=== PATIENT | female | born 1945 | race Caucasian/White ===

== ENCOUNTER 2018-06-11 14:26 | Inpatient (IN) | payer MEDICARE, OTHER ==
[2018-06-11] MEDS: NITROGLYCERIN (SL) 0.4 MG TAB SL (15:15)
[2018-06-11 15:28] LABS: ADD MAN DIFF? NO
[2018-06-11 15:29] LABS: WHITE BLOOD COUNT 5.9 10^3/ul (4.8-10.8)
[2018-06-11 15:29] LABS: BASOPHILS % 0.3 % (0.0-2.0); EOSINOPHILS # 0.1 10^3/ul (0.0-0.5); HEMATOCRIT 33.3 % (37.0-47.0); HEMOGLOBIN 10.1 g/dl (12.0-16.0); LYMPHOCYTES # 1.2 10^3/ul (0.8-2.9); LYMPHOCYTES % 20.5 % (15.0-51.0); MEAN CORPUSCULAR HEMOGLOBIN 26.6 pg (29.0-33.0); MEAN CORPUSCULAR HGB CONC 30.3 g/dl (32.0-37.0); MEAN CORPUSCULAR VOLUME 87.6 fl (82.0-101.0); MEAN PLATELET VOLUME 10.5 fl (7.4-10.4); MONOCYTE # 0.3 10^3/ul (0.3-0.9); MONOCYTES % 5.8 % (0.0-11.0); NEUTROPHIL # 4.2 10^3/ul (1.6-7.5); NEUTROPHILS % 71.1 % (39.0-77.0); PLATELET COUNT 153 10^3/UL (140-415); RED CELL DISTRIBUTION WIDTH 15.4 % (11.5-14.5)
[2018-06-11 15:50] LABS: ANION GAP 3 (5-13); BLOOD UREA NITROGEN 28 mg/dl (7-20); CALCIUM 9.3 mg/dl (8.4-10.2); CARBON DIOXIDE 29 mmol/L (21-31); CHLORIDE 109 mmol/L (97-110); CREATININE 1.33 mg/dl (0.44-1.00); GLUCOSE 103 mg/dl (70-220); SODIUM 141 mmol/L (135-144)
[2018-06-11 16:02] LABS: B-TYPE NATRIURETIC PEPTIDE 2250 PG/ML (0-125); TROPONIN-I < 0.012 ng/ml (0.000-0.120)
[2018-06-11] MEDS: FUROSEMIDE 40 MG INJ IV (16:16)
[2018-06-11] MEDS ORDERED: ZOLPIDEM 5 MG TAB PO (18:30)
[2018-06-11] MEDS ORDERED: DOCUSATE SODIUM 100 MG CAP PO (18:30)
[2018-06-11] MEDS: CLONIDINE 0.3 MG/24 HR PATCH TRANSDERM (18:30)
[2018-06-11] MEDS ORDERED: ONDANSETRON 4 MG INJ IV ×2 (18:30→19:00)
[2018-06-11] MEDS: NON-FORMULARY/PATIENT OWN MED (Ergocalciferol (Vitamin D2) (Vitamin D2) 50,000 UNIT) XX (18:30)
[2018-06-11] MEDS ORDERED: clonAZEPAM 0.5 MG TAB PO (18:30)
[2018-06-11] MEDS ORDERED: NACL 0.9% 3 ML SYG IV (18:30)
[2018-06-11] MEDS ORDERED: ACETAMINOPHEN 325 MG TAB PO ×2 (18:30→19:00)
[2018-06-11] MEDS ORDERED: GLUCAGON 1 MG INJ IM (20:00)
[2018-06-11] MEDS: INSULIN GLARGINE [LANTus] (100 UNITS/ML) SYG SC (20:00)
[2018-06-11] MEDS ORDERED: GLUCOSE GEL 15 GRAM TUBE BUCCAL (20:00)
[2018-06-11] MEDS ORDERED: DEXTROSE 50% 50 ML SYRINGE IV ×2 (20:00)
[2018-06-11] MEDS ORDERED: GLUCOSE GEL 15 GRAM TUBE PO ×2 (20:00)
[2018-06-11] MEDS ORDERED: NON-FORMULARY/PATIENT OWN MED (Rosuvastatin Calcium* (Crestor*) 10 MG) PO (21:00)
[2018-06-11] MEDS: INSULIN ASPART [NOVOLOG] 3 ML PEN SC (21:00)
[2018-06-11] MEDS ORDERED: HEPARIN 5,000 UNIT/0.5 ML VIAL (21:34)
[2018-06-11] MEDS: CYCLOBENZAPRINE 10 MG TAB PO (21:43)
[2018-06-11] MEDS: CEPHALEXIN 500 MG CAP PO (21:50)
[2018-06-11] MEDS: DOXAZOSIN 4 MG TAB PO (21:51)
[2018-06-11] MEDS: MONTELUKAST 10 MG TAB PO (21:52)
[2018-06-11] MEDS: ATORVASTATIN 40 MG TAB PO (21:52)
[2018-06-11] MEDS: MIRTAZAPINE 15 MG TAB PO (21:52)
[2018-06-11] MEDS: clonAZEPAM 0.5 MG TAB PO (21:53)
[2018-06-11] MEDS: BETAMETHASONE/CLOTRIMAZOLE 15 GM CR TOP (21:55)
[2018-06-11] MEDS: HEPARIN SODIUM 5,000 UNIT/ML VIAL SC (21:59)
[2018-06-11] MEDS ORDERED: NON-FORMULARY/PATIENT OWN MED (Hydralazine Hcl* 50 MG) PO (22:00)
[2018-06-11] MEDS: ZOLPIDEM 5 MG TAB PO (22:20)
[2018-06-11] MEDS: traMADol 50 MG TAB PO (22:22)
[2018-06-12] MEDS: ACCU-CHEK XX (02:00)
[2018-06-12] MEDS ORDERED: HEPARIN 5,000 UNIT/0.5 ML VIAL ×3 (05:17→22:01)
[2018-06-12 05:55] LABS: ADD MAN DIFF? NO
[2018-06-12 05:58] LABS: WHITE BLOOD COUNT 5.5 10^3/ul (4.8-10.8)
[2018-06-12 05:58] LABS: BASOPHILS % 0.7 % (0.0-2.0); EOSINOPHILS # 0.2 10^3/ul (0.0-0.5); EOSINOPHILS % 2.7 % (0.0-7.0); HEMATOCRIT 30.2 % (37.0-47.0); HEMOGLOBIN 9.2 g/dl (12.0-16.0); LYMPHOCYTES # 1.2 10^3/ul (0.8-2.9); LYMPHOCYTES % 21.2 % (15.0-51.0); MEAN CORPUSCULAR HEMOGLOBIN 26.6 pg (29.0-33.0); MEAN CORPUSCULAR HGB CONC 30.5 g/dl (32.0-37.0); MEAN CORPUSCULAR VOLUME 87.3 fl (82.0-101.0); MEAN PLATELET VOLUME 10.2 fl (7.4-10.4); MONOCYTE # 0.4 10^3/ul (0.3-0.9); MONOCYTES % 7.9 % (0.0-11.0); NEUTROPHIL # 3.7 10^3/ul (1.6-7.5); NEUTROPHILS % 67.1 % (39.0-77.0); PLATELET COUNT 134 10^3/UL (140-415); RED BLOOD COUNT 3.46 10^6/ul (4.20-5.40); RED CELL DISTRIBUTION WIDTH 15.6 % (11.5-14.5)
[2018-06-12] MEDS: FUROSEMIDE 40 MG INJ IV ×2 (06:16→17:06)
[2018-06-12] MEDS: HEPARIN SODIUM 5,000 UNIT/ML VIAL SC ×3 (06:22→22:09)
[2018-06-12 06:57] LABS: ANION GAP 5 (5-13); BLOOD UREA NITROGEN 29 mg/dl (7-20); CARBON DIOXIDE 27 mmol/L (21-31); CHLORIDE 109 mmol/L (97-110); CREATININE 1.29 mg/dl (0.44-1.00); GLUCOSE 162 mg/dl (70-220); POTASSIUM 4.4 mmol/L (3.5-5.1); SODIUM 141 mmol/L (135-144)
[2018-06-12] MEDS: ARIPIPRAZOLE 5 MG TAB PO (08:07)
[2018-06-12] MEDS: FERROUS SULFATE (EC) 325 MG TAB PO (08:08)
[2018-06-12] MEDS: METOPROLOL (XL) 100 MG TAB PO (08:11)
[2018-06-12] MEDS: AMLODIPINE 10 MG TAB PO (08:12)
[2018-06-12] MEDS: ALLOPURINOL 300 MG TAB PO (08:12)
[2018-06-12] MEDS: BETAMETHASONE/CLOTRIMAZOLE 15 GM CR TOP ×2 (08:12→22:06)
[2018-06-12] MEDS ORDERED: ASPIRIN 81 MG TAB PO (09:00)
[2018-06-12] MEDS ORDERED: METOPROLOL SUCCINATE 100 MG PO (09:00)
[2018-06-12] MEDS: INSULIN ASPART [NOVOLOG] 3 ML PEN SC ×4 (09:07→21:00)
[2018-06-12] MEDS: FLUTICASONE/VILANTEROL 200-25 INH DEVICE INH (13:07)
[2018-06-12] MEDS: GUAIFENESIN/DM 5ML CUP PO (16:32)
[2018-06-12] MEDS: ATORVASTATIN 40 MG TAB PO (21:07)
[2018-06-12] MEDS: DOXAZOSIN 4 MG TAB PO (21:07)
[2018-06-12] MEDS: CYCLOBENZAPRINE 10 MG TAB PO (21:08)
[2018-06-12] MEDS: MIRTAZAPINE 15 MG TAB PO (21:08)
[2018-06-12] MEDS: MONTELUKAST 10 MG TAB PO (21:08)
[2018-06-12] MEDS: ZOLPIDEM 5 MG TAB PO (21:14)
[2018-06-12] MEDS: clonAZEPAM 0.5 MG TAB PO (21:14)
[2018-06-12] MEDS: INSULIN GLARGINE [LANTus] (100 UNITS/ML) SYG SC (21:28)
[2018-06-13] MEDS: ACCU-CHEK XX (02:00)
[2018-06-13] MEDS ORDERED: HEPARIN 5,000 UNIT/0.5 ML VIAL ×3 (05:47→21:05)
[2018-06-13 05:49] LABS: ADD MAN DIFF? NO
[2018-06-13 05:56] LABS: WHITE BLOOD COUNT 5.4 10^3/ul (4.8-10.8)
[2018-06-13 05:56] LABS: BASOPHILS % 0.7 % (0.0-2.0); EOSINOPHILS # 0.2 10^3/ul (0.0-0.5); EOSINOPHILS % 2.8 % (0.0-7.0); HEMATOCRIT 29.3 % (37.0-47.0); HEMOGLOBIN 9.1 g/dl (12.0-16.0); LYMPHOCYTES # 1.3 10^3/ul (0.8-2.9); LYMPHOCYTES % 24.7 % (15.0-51.0); MEAN CORPUSCULAR HEMOGLOBIN 26.6 pg (29.0-33.0); MEAN CORPUSCULAR HGB CONC 31.1 g/dl (32.0-37.0); MEAN CORPUSCULAR VOLUME 85.7 fl (82.0-101.0); MEAN PLATELET VOLUME 10.5 fl (7.4-10.4); MONOCYTE # 0.4 10^3/ul (0.3-0.9); MONOCYTES % 7.6 % (0.0-11.0); NEUTROPHIL # 3.5 10^3/ul (1.6-7.5); PLATELET COUNT 131 10^3/UL (140-415); RED BLOOD COUNT 3.42 10^6/ul (4.20-5.40); RED CELL DISTRIBUTION WIDTH 15.4 % (11.5-14.5)
[2018-06-13] MEDS: FUROSEMIDE 40 MG INJ IV ×2 (06:11→17:39)
[2018-06-13 06:14] LABS: ANION GAP 9 (5-13)
[2018-06-13 06:15] LABS: BLOOD UREA NITROGEN 37 mg/dl (7-20); CALCIUM 8.8 mg/dl (8.4-10.2); CARBON DIOXIDE 24 mmol/L (21-31); CHLORIDE 107 mmol/L (97-110); CREATININE 1.38 mg/dl (0.44-1.00); GLUCOSE 138 mg/dl (70-220); POTASSIUM 4.4 mmol/L (3.5-5.1); SODIUM 140 mmol/L (135-144)
[2018-06-13] MEDS: HEPARIN SODIUM 5,000 UNIT/ML VIAL SC ×3 (06:17→21:29)
[2018-06-13] MEDS: INSULIN ASPART [NOVOLOG] 3 ML PEN SC ×4 (07:54→21:00)
[2018-06-13] MEDS: ARIPIPRAZOLE 5 MG TAB PO (08:25)
[2018-06-13] MEDS: AMLODIPINE 10 MG TAB PO (08:25)
[2018-06-13] MEDS: ALLOPURINOL 300 MG TAB PO (08:25)
[2018-06-13] MEDS: FERROUS SULFATE (EC) 325 MG TAB PO (08:25)
[2018-06-13] MEDS: BETAMETHASONE/CLOTRIMAZOLE 15 GM CR TOP ×2 (08:26→21:22)
[2018-06-13] MEDS: METOPROLOL (XL) 100 MG TAB PO (08:26)
[2018-06-13] MEDS: FLUTICASONE/VILANTEROL 200-25 INH DEVICE INH (08:26)
[2018-06-13] MEDS ORDERED: LEVOFLOXACIN 750MG/D5W (PMX) 150 ML IVPB (12:30)
[2018-06-13] MEDS ORDERED: VANCOMYCIN IV PER PHARMACY XX (12:30)
[2018-06-13] MEDS: CLONIDINE 0.3 MG/24 HR PATCH TRANSDERM (12:36)
[2018-06-13] MEDS: LEVOFLOXACIN 750MG/D5W (PMX) 150 ML IVPB (13:34)
[2018-06-13] MEDS: VANCOMYCIN 1.75 GM in SOD CHLORIDE 0.9% 500 ML IVPB (15:40)
[2018-06-13] MEDS ORDERED: FAMOTIDINE 20 MG TAB PO (21:00)
[2018-06-13] MEDS: MIRTAZAPINE 15 MG TAB PO (21:19)
[2018-06-13] MEDS: ATORVASTATIN 40 MG TAB PO (21:19)
[2018-06-13] MEDS: DOXAZOSIN 4 MG TAB PO (21:20)
[2018-06-13] MEDS: CYCLOBENZAPRINE 10 MG TAB PO (21:20)
[2018-06-13] MEDS: MONTELUKAST 10 MG TAB PO (21:21)
[2018-06-13] MEDS: FAMOTIDINE 20 MG TAB PO (21:21)
[2018-06-13] MEDS: ZOLPIDEM 5 MG TAB PO (21:25)
[2018-06-13] MEDS: clonAZEPAM 0.5 MG TAB PO (21:25)
[2018-06-13] MEDS: INSULIN GLARGINE [LANTus] (100 UNITS/ML) SYG SC (21:29)
[2018-06-14] MEDS: ACCU-CHEK XX (02:00)
[2018-06-14] MEDS ORDERED: HEPARIN 5,000 UNIT/0.5 ML VIAL ×3 (05:39→21:09)
[2018-06-14] MEDS: FUROSEMIDE 40 MG INJ IV ×2 (05:41→17:26)
[2018-06-14] MEDS: HEPARIN SODIUM 5,000 UNIT/ML VIAL SC ×3 (06:21→21:21)
[2018-06-14] MEDS: CEPASTAT LOZENGE MT (06:35)
[2018-06-14 06:41] LABS: ADD MAN DIFF? NO
[2018-06-14 06:48] LABS: BASOPHILS % 0.4 % (0.0-2.0); EOSINOPHILS # 0.1 10^3/ul (0.0-0.5); EOSINOPHILS % 2.1 % (0.0-7.0); HEMATOCRIT 30.9 % (37.0-47.0); HEMOGLOBIN 9.6 g/dl (12.0-16.0); LYMPHOCYTES % 18.8 % (15.0-51.0); MEAN CORPUSCULAR HEMOGLOBIN 26.8 pg (29.0-33.0); MEAN CORPUSCULAR HGB CONC 31.1 g/dl (32.0-37.0); MEAN CORPUSCULAR VOLUME 86.3 fl (82.0-101.0); MEAN PLATELET VOLUME 10.6 fl (7.4-10.4); MONOCYTE # 0.4 10^3/ul (0.3-0.9); MONOCYTES % 8.5 % (0.0-11.0); NEUTROPHIL # 3.6 10^3/ul (1.6-7.5); NEUTROPHILS % 69.6 % (39.0-77.0); PLATELET COUNT 129 10^3/UL (140-415); RED BLOOD COUNT 3.58 10^6/ul (4.20-5.40); RED CELL DISTRIBUTION WIDTH 15.2 % (11.5-14.5)
[2018-06-14 06:48] LABS: WHITE BLOOD COUNT 5.2 10^3/ul (4.8-10.8)
[2018-06-14 07:18] LABS: ANION GAP 10 (5-13); BLOOD UREA NITROGEN 42 mg/dl (7-20); CALCIUM 8.9 mg/dl (8.4-10.2); CARBON DIOXIDE 24 mmol/L (21-31); CHLORIDE 107 mmol/L (97-110); CREATININE 1.32 mg/dl (0.44-1.00); GLUCOSE 136 mg/dl (70-220); POTASSIUM 4.7 mmol/L (3.5-5.1); SODIUM 141 mmol/L (135-144)
[2018-06-14 07:24] LABS: PHOSPHORUS 3.9 mg/dl (2.5-4.9)
[2018-06-14 07:24] LABS: MAGNESIUM 1.8 mg/dl (1.7-2.5)
[2018-06-14] MEDS: METOPROLOL (XL) 100 MG TAB PO (08:05)
[2018-06-14] MEDS: AMLODIPINE 10 MG TAB PO (08:06)
[2018-06-14] MEDS: FERROUS SULFATE (EC) 325 MG TAB PO (08:06)
[2018-06-14] MEDS: ALLOPURINOL 300 MG TAB PO (08:06)
[2018-06-14] MEDS: FAMOTIDINE 20 MG TAB PO ×2 (08:06→21:03)
[2018-06-14] MEDS: FLUTICASONE/VILANTEROL 200-25 INH DEVICE INH (08:07)
[2018-06-14] MEDS: INSULIN ASPART [NOVOLOG] 3 ML PEN SC ×4 (08:41→21:00)
[2018-06-14] MEDS: BETAMETHASONE/CLOTRIMAZOLE 15 GM CR TOP ×2 (11:00→21:09)
[2018-06-14] MEDS: MAGNESIUM SULFATE 2 GM/50 ML 50 ML IVPB (11:00)
[2018-06-14] MEDS: GUAIFENESIN/DM 5ML CUP PO (12:28)
[2018-06-14] MEDS: ARIPIPRAZOLE 5 MG TAB PO (12:28)
[2018-06-14] MEDS: VANCOMYCIN 750 MG in SOD CHLORIDE 0.9% 150 ML IVPB (15:56)
[2018-06-14] MEDS: ATORVASTATIN 40 MG TAB PO (21:02)
[2018-06-14] MEDS: ZOLPIDEM 5 MG TAB PO (21:02)
[2018-06-14] MEDS: clonAZEPAM 0.5 MG TAB PO (21:02)
[2018-06-14] MEDS: CYCLOBENZAPRINE 10 MG TAB PO (21:02)
[2018-06-14] MEDS: MIRTAZAPINE 15 MG TAB PO (21:02)
[2018-06-14] MEDS: MONTELUKAST 10 MG TAB PO (21:02)
[2018-06-14] MEDS: DOXAZOSIN 4 MG TAB PO (21:03)
[2018-06-14] MEDS: INSULIN GLARGINE [LANTus] (100 UNITS/ML) SYG SC (21:17)
[2018-06-14] MEDS: traMADol 50 MG TAB PO (22:07)
[2018-06-15] MEDS: ACCU-CHEK XX (02:00)
[2018-06-15] MEDS ORDERED: HEPARIN 5,000 UNIT/0.5 ML VIAL ×2 (06:11→14:18)
[2018-06-15 06:31] LABS: ADD MAN DIFF? NO
[2018-06-15] MEDS: FUROSEMIDE 40 MG INJ IV (06:34)
[2018-06-15] MEDS: HEPARIN SODIUM 5,000 UNIT/ML VIAL SC ×2 (06:38→14:28)
[2018-06-15 06:40] LABS: BASOPHILS % 0.4 % (0.0-2.0); EOSINOPHILS # 0.1 10^3/ul (0.0-0.5); EOSINOPHILS % 1.8 % (0.0-7.0); HEMATOCRIT 29.7 % (37.0-47.0); HEMOGLOBIN 9.1 g/dl (12.0-16.0); LYMPHOCYTES # 0.9 10^3/ul (0.8-2.9); LYMPHOCYTES % 18.5 % (15.0-51.0); MEAN CORPUSCULAR HEMOGLOBIN 26.5 pg (29.0-33.0); MEAN CORPUSCULAR HGB CONC 30.6 g/dl (32.0-37.0); MEAN CORPUSCULAR VOLUME 86.3 fl (82.0-101.0); MEAN PLATELET VOLUME 10.6 fl (7.4-10.4); MONOCYTE # 0.5 10^3/ul (0.3-0.9); MONOCYTES % 9.2 % (0.0-11.0); NEUTROPHIL # 3.4 10^3/ul (1.6-7.5); NEUTROPHILS % 69.5 % (39.0-77.0); PLATELET COUNT 127 10^3/UL (140-415); RED BLOOD COUNT 3.44 10^6/ul (4.20-5.40); RED CELL DISTRIBUTION WIDTH 15.5 % (11.5-14.5)
[2018-06-15 06:40] LABS: WHITE BLOOD COUNT 4.9 10^3/ul (4.8-10.8)
[2018-06-15 07:09] LABS: ANION GAP 9 (5-13); BLOOD UREA NITROGEN 39 mg/dl (7-20); CALCIUM 8.9 mg/dl (8.4-10.2); CARBON DIOXIDE 24 mmol/L (21-31); CHLORIDE 106 mmol/L (97-110); CREATININE 1.54 mg/dl (0.44-1.00); GLUCOSE 136 mg/dl (70-220); POTASSIUM 4.1 mmol/L (3.5-5.1); SODIUM 139 mmol/L (135-144)
[2018-06-15] MEDS: ALLOPURINOL 300 MG TAB PO (08:01)
[2018-06-15] MEDS: FLUTICASONE/VILANTEROL 200-25 INH DEVICE INH (08:01)
[2018-06-15] MEDS: METOPROLOL (XL) 100 MG TAB PO (08:01)
[2018-06-15] MEDS: FERROUS SULFATE (EC) 325 MG TAB PO (08:02)
[2018-06-15] MEDS: AMLODIPINE 10 MG TAB PO (08:02)
[2018-06-15] MEDS: BETAMETHASONE/CLOTRIMAZOLE 15 GM CR TOP (08:02)
[2018-06-15] MEDS: FAMOTIDINE 20 MG TAB PO (08:02)
[2018-06-15] MEDS: INSULIN ASPART [NOVOLOG] 3 ML PEN SC ×3 (08:12→16:59)
[2018-06-15 08:26] LABS: MAGNESIUM 2.3 mg/dl (1.7-2.5)
[2018-06-15 08:26] LABS: PHOSPHORUS 3.8 mg/dl (2.5-4.9)
[2018-06-15] MEDS: ARIPIPRAZOLE 10 MG TAB PO (11:56)
[2018-06-15] MEDS: LEVOFLOXACIN 750MG/D5W (PMX) 150 ML IVPB (14:20)
[2018-06-15] MEDS: VANCOMYCIN 750 MG in SOD CHLORIDE 0.9% 150 ML IVPB (15:31)
[2018-06-15] MEDS: FUROSEMIDE 20 MG TAB PO (16:40)
[2018-06-15] MEDS: DOXAZOSIN 4 MG TAB PO (20:14)
[2018-06-18] MEDS ORDERED: ERGOCALCIFEROL 50,000 UNIT CAP PO (09:00)
== END 2018-06-15 20:55 | disposition home health service (06) | DRG 291 ==
LOC: E/R 14:26 → TEL 18:35
DX: I13.0 Hypertensive heart and chronic kidney disease with heart failure and stage 1 through stage 4 chronic kidney disease, or unspecified chronic kidney disease (principal); I50.33 Acute on chronic diastolic (congestive) heart failure; L03.119 Cellulitis of unspecified part of limb; N18.9 Chronic kidney disease, unspecified; E11.22 Type 2 diabetes mellitus with diabetic chronic kidney disease; E78.5 Hyperlipidemia, unspecified; J45.909 Unspecified asthma, uncomplicated; Z79.4 Long term (current) use of insulin; Z79.84 Long term (current) use of oral hypoglycemic drugs; Z95.0 Presence of cardiac pacemaker
CPT/HCPCS: 36415; 70450; 71045; 73560; 80048; 82962; 83735; 83880; 84100; 84484; 85025; 87081; 93005; 96374; 99285-25; G0378

== ENCOUNTER 2018-06-21 20:01 | Inpatient (IN) | payer MEDICARE, OTHER ==
[2018-06-21 20:44] LABS: ADD MAN DIFF? NO
[2018-06-21 20:46] LABS: WHITE BLOOD COUNT 7.9 10^3/ul (4.8-10.8)
[2018-06-21 20:46] LABS: BASOPHILS % 0.3 % (0.0-2.0); EOSINOPHILS # 0.1 10^3/ul (0.0-0.5); EOSINOPHILS % 0.9 % (0.0-7.0); HEMATOCRIT 33.6 % (37.0-47.0); HEMOGLOBIN 10.3 g/dl (12.0-16.0); LYMPHOCYTES # 1.3 10^3/ul (0.8-2.9); LYMPHOCYTES % 15.9 % (15.0-51.0); MEAN CORPUSCULAR HEMOGLOBIN 26.5 pg (29.0-33.0); MEAN CORPUSCULAR HGB CONC 30.7 g/dl (32.0-37.0); MEAN CORPUSCULAR VOLUME 86.4 fl (82.0-101.0); MEAN PLATELET VOLUME 10.8 fl (7.4-10.4); MONOCYTE # 0.4 10^3/ul (0.3-0.9); MONOCYTES % 5.3 % (0.0-11.0); NEUTROPHIL # 6.1 10^3/ul (1.6-7.5); PLATELET COUNT 157 10^3/UL (140-415); RED BLOOD COUNT 3.89 10^6/ul (4.20-5.40); RED CELL DISTRIBUTION WIDTH 15.8 % (11.5-14.5)
[2018-06-21 21:05] LABS: ANION GAP 8 (5-13); BLOOD UREA NITROGEN 27 mg/dl (7-20); CARBON DIOXIDE 22 mmol/L (21-31); CHLORIDE 108 mmol/L (97-110); CREATININE 0.96 mg/dl (0.44-1.00); GLUCOSE 143 mg/dl (70-220); POTASSIUM 5.5 mmol/L (3.5-5.1); SODIUM 138 mmol/L (135-144)
[2018-06-21 21:17] LABS: TROPONIN-I < 0.012 ng/ml (0.000-0.120)
[2018-06-22] MEDS: ZOLPIDEM 5 MG TAB PO (00:30)
[2018-06-22] MEDS ORDERED: NITROGLYCERIN (SL) 0.4 MG TAB SL (03:00)
[2018-06-22] MEDS ORDERED: ALENDRONATE 70 MG TAB PO (03:00)
[2018-06-22] MEDS ORDERED: DICLOFENAC SODIUM 1% GEL 100 GM TUBE TP (03:00)
[2018-06-22] MEDS ORDERED: clonAZEPAM 0.5 MG TAB PO (03:00)
[2018-06-22] MEDS ORDERED: LEVOFLOXACIN 750 MG TABLET PO (03:00)
[2018-06-22] MEDS ORDERED: traMADol 50 MG TAB PO (03:00)
[2018-06-22] MEDS ORDERED: ACETAMINOPHEN 500 MG TAB PO (03:00)
[2018-06-22 03:19] LABS: CREATINE KINASE < 20 IU/L (23-200)
[2018-06-22 03:21] LABS: CK-MB 0.65 ng/ml (0.0-2.4); TROPONIN-I < 0.012 ng/ml (0.000-0.120)
[2018-06-22] MEDS ORDERED: GLUCAGON 1 MG INJ IM (03:30)
[2018-06-22] MEDS ORDERED: GLUCOSE GEL 15 GRAM TUBE PO ×2 (03:30)
[2018-06-22] MEDS ORDERED: DEXTROSE 50% 50 ML SYRINGE IV ×2 (03:30)
[2018-06-22] MEDS ORDERED: GLUCOSE GEL 15 GRAM TUBE BUCCAL (03:30)
[2018-06-22] MEDS: FUROSEMIDE 40 MG INJ IV ×2 (05:09→17:23)
[2018-06-22 07:12] LABS: ADD MAN DIFF? NO
[2018-06-22 07:15] LABS: WHITE BLOOD COUNT 7.1 10^3/ul (4.8-10.8)
[2018-06-22 07:15] LABS: BASOPHILS % 0.4 % (0.0-2.0); EOSINOPHILS # 0.1 10^3/ul (0.0-0.5); EOSINOPHILS % 1.4 % (0.0-7.0); HEMOGLOBIN 9.4 g/dl (12.0-16.0); LYMPHOCYTES # 1.7 10^3/ul (0.8-2.9); LYMPHOCYTES % 24.4 % (15.0-51.0); MEAN CORPUSCULAR HEMOGLOBIN 26.3 pg (29.0-33.0); MEAN CORPUSCULAR HGB CONC 30.3 g/dl (32.0-37.0); MEAN CORPUSCULAR VOLUME 86.6 fl (82.0-101.0); MEAN PLATELET VOLUME 10.5 fl (7.4-10.4); MONOCYTE # 0.5 10^3/ul (0.3-0.9); MONOCYTES % 7.2 % (0.0-11.0); NEUTROPHIL # 4.7 10^3/ul (1.6-7.5); PLATELET COUNT 159 10^3/UL (140-415); RED BLOOD COUNT 3.58 10^6/ul (4.20-5.40); RED CELL DISTRIBUTION WIDTH 15.7 % (11.5-14.5)
[2018-06-22 07:37] LABS: ANION GAP 9 (5-13); BLOOD UREA NITROGEN 25 mg/dl (7-20); CALCIUM 9.2 mg/dl (8.4-10.2); CARBON DIOXIDE 25 mmol/L (21-31); CHLORIDE 108 mmol/L (97-110); CREATININE 1.14 mg/dl (0.44-1.00); GLUCOSE 54 mg/dl (70-220); POTASSIUM 4.1 mmol/L (3.5-5.1); SODIUM 142 mmol/L (135-144)
[2018-06-22 07:45] LABS: B-TYPE NATRIURETIC PEPTIDE 3700 PG/ML (0-125)
[2018-06-22] MEDS: GLIMEPIRIDE 4 MG TAB PO (08:52)
[2018-06-22] MEDS: ARIPIPRAZOLE 5 MG TAB PO (08:52)
[2018-06-22] MEDS: ALLOPURINOL 300 MG TAB PO (08:52)
[2018-06-22] MEDS: METOPROLOL (XL) 100 MG TAB PO (08:52)
[2018-06-22] MEDS: CITALOPRAM 20 MG TAB PO (08:52)
[2018-06-22] MEDS: FERROUS SULFATE (EC) 325 MG TAB PO (08:52)
[2018-06-22] MEDS: AMLODIPINE 10 MG TAB PO (08:52)
[2018-06-22] MEDS: BETAMETHASONE/CLOTRIMAZOLE 15 GM CR TOP ×2 (08:53→21:07)
[2018-06-22] MEDS: ASPIRIN 81 MG TAB PO (09:00)
[2018-06-22 09:31] LABS: CREATINE KINASE < 20 IU/L (23-200)
[2018-06-22 09:43] LABS: CK-MB 0.49 ng/ml (0.0-2.4); TROPONIN-I < 0.012 ng/ml (0.000-0.120)
[2018-06-22] MEDS: INSULIN ASPART [NOVOLOG] 3 ML PEN SC ×3 (11:50→21:00)
[2018-06-22] MEDS: PANTOPRAZOLE (EC) 40 MG TAB PO (12:26)
[2018-06-22] MEDS: GUAIFENESIN LA 600 MG TABSR PO ×2 (12:26→21:06)
[2018-06-22] MEDS: FLUTICASONE/VILANTEROL 200-25 INH DEVICE INH (14:07)
[2018-06-22] MEDS: CLONIDINE 0.3 MG/24 HR PATCH TRANSDERM (14:09)
[2018-06-22] MEDS: SPIRONOLACTONE 25 MG TAB PO (17:23)
[2018-06-22] MEDS ORDERED: NON-FORMULARY/PATIENT OWN MED (Rosuvastatin Calcium* (Crestor*) 10 MG) PO (21:00)
[2018-06-22] MEDS: CYCLOBENZAPRINE 10 MG TAB PO (21:05)
[2018-06-22] MEDS: MONTELUKAST 10 MG TAB PO (21:05)
[2018-06-22] MEDS: MIRTAZAPINE 15 MG TAB PO (21:05)
[2018-06-22] MEDS: ATORVASTATIN 10 MG TAB PO (21:05)
[2018-06-22] MEDS: DOXAZOSIN 4 MG TAB PO (21:06)
[2018-06-22] MEDS: INSULIN DETEMIR [LEVEMIR] (100 UNITS/ML) SYG SC (21:14)
[2018-06-22] MEDS: FUROSEMIDE 250 MG in DEXTROSE 5% 225 ML IV (23:40)
[2018-06-23] MEDS: ACCU-CHEK XX ×2 (02:00→23:39)
[2018-06-23] MEDS ORDERED: ACCU-CHEK XX (02:00)
[2018-06-23] MEDS ORDERED: FUROSEMIDE 40 MG INJ IV (06:00)
[2018-06-23 06:13] LABS: ADD MAN DIFF? NO
[2018-06-23] MEDS: SPIRONOLACTONE 25 MG TAB PO ×2 (06:15→17:41)
[2018-06-23] MEDS: PANTOPRAZOLE (EC) 40 MG TAB PO (06:15)
[2018-06-23 06:21] LABS: BASOPHILS % 0.5 % (0.0-2.0); EOSINOPHILS # 0.1 10^3/ul (0.0-0.5); EOSINOPHILS % 1.7 % (0.0-7.0); HEMATOCRIT 30.7 % (37.0-47.0); HEMOGLOBIN 9.6 g/dl (12.0-16.0); LYMPHOCYTES # 1.8 10^3/ul (0.8-2.9); LYMPHOCYTES % 24.1 % (15.0-51.0); MEAN CORPUSCULAR HGB CONC 31.3 g/dl (32.0-37.0); MEAN CORPUSCULAR VOLUME 86.5 fl (82.0-101.0); MONOCYTE # 0.6 10^3/ul (0.3-0.9); MONOCYTES % 7.4 % (0.0-11.0); NEUTROPHIL # 4.9 10^3/ul (1.6-7.5); NEUTROPHILS % 65.9 % (39.0-77.0); PLATELET COUNT 149 10^3/UL (140-415); RED BLOOD COUNT 3.55 10^6/ul (4.20-5.40); RED CELL DISTRIBUTION WIDTH 15.7 % (11.5-14.5)
[2018-06-23 06:21] LABS: WHITE BLOOD COUNT 7.5 10^3/ul (4.8-10.8)
[2018-06-23 06:39] LABS: ANION GAP 8 (5-13); BLOOD UREA NITROGEN 38 mg/dl (7-20); CARBON DIOXIDE 27 mmol/L (21-31); CHLORIDE 107 mmol/L (97-110); CREATININE 1.38 mg/dl (0.44-1.00); GLUCOSE 72 mg/dl (70-220); POTASSIUM 4.5 mmol/L (3.5-5.1); SODIUM 142 mmol/L (135-144)
[2018-06-23] MEDS: INSULIN ASPART [NOVOLOG] 3 ML PEN SC ×4 (07:55→21:00)
[2018-06-23] MEDS: LEVOFLOXACIN 500 MG TAB PO (08:20)
[2018-06-23] MEDS: ALLOPURINOL 300 MG TAB PO (08:20)
[2018-06-23] MEDS: METOLAZONE 5 MG TAB PO (08:20)
[2018-06-23] MEDS: CITALOPRAM 20 MG TAB PO (08:20)
[2018-06-23] MEDS: AMLODIPINE 10 MG TAB PO (08:20)
[2018-06-23] MEDS: FERROUS SULFATE (EC) 325 MG TAB PO (08:20)
[2018-06-23] MEDS: ASPIRIN 81 MG TAB PO ×2 (08:20→09:00)
[2018-06-23] MEDS: ARIPIPRAZOLE 5 MG TAB PO (08:20)
[2018-06-23] MEDS: METOPROLOL (XL) 100 MG TAB PO (08:21)
[2018-06-23] MEDS: FLUTICASONE/VILANTEROL 200-25 INH DEVICE INH (08:21)
[2018-06-23] MEDS: GUAIFENESIN LA 600 MG TABSR PO ×2 (08:21→21:07)
[2018-06-23] MEDS: BETAMETHASONE/CLOTRIMAZOLE 15 GM CR TOP ×2 (08:21→20:59)
[2018-06-23 08:53] LABS: MAGNESIUM 1.9 mg/dl (1.7-2.5)
[2018-06-23] MEDS ORDERED: NON-FORMULARY/PATIENT OWN MED (Omeprazole* 40 MG) PO (09:00)
[2018-06-23] MEDS: MIRTAZAPINE 15 MG TAB PO (21:07)
[2018-06-23] MEDS: ATORVASTATIN 10 MG TAB PO (21:07)
[2018-06-23] MEDS: DOXAZOSIN 4 MG TAB PO (21:08)
[2018-06-23] MEDS: MONTELUKAST 10 MG TAB PO (21:08)
[2018-06-23] MEDS: CYCLOBENZAPRINE 10 MG TAB PO (21:08)
[2018-06-23] MEDS: INSULIN DETEMIR [LEVEMIR] (100 UNITS/ML) SYG SC (21:22)
[2018-06-23] MEDS: ALBUTEROL 0.083% (NEB) 2.5 MG/3 ML AMP HHN (22:02)
[2018-06-23] MEDS: FUROSEMIDE 250 MG in DEXTROSE 5% 225 ML IV (23:00)
[2018-06-24] MEDS: SPIRONOLACTONE 25 MG TAB PO ×2 (06:10→17:47)
[2018-06-24] MEDS: PANTOPRAZOLE (EC) 40 MG TAB PO (06:10)
[2018-06-24] MEDS: FERROUS SULFATE (EC) 325 MG TAB PO (08:17)
[2018-06-24] MEDS: CITALOPRAM 20 MG TAB PO (08:17)
[2018-06-24] MEDS: ARIPIPRAZOLE 5 MG TAB PO (08:18)
[2018-06-24] MEDS: AMLODIPINE 10 MG TAB PO (08:18)
[2018-06-24] MEDS: METOPROLOL (XL) 100 MG TAB PO (08:18)
[2018-06-24] MEDS: ALLOPURINOL 300 MG TAB PO (08:18)
[2018-06-24] MEDS: ASPIRIN 81 MG TAB PO (08:18)
[2018-06-24] MEDS: METOLAZONE 5 MG TAB PO (08:18)
[2018-06-24] MEDS: GUAIFENESIN LA 600 MG TABSR PO ×2 (08:18→21:16)
[2018-06-24] MEDS: FLUTICASONE/VILANTEROL 200-25 INH DEVICE INH (08:18)
[2018-06-24] MEDS: INSULIN ASPART [NOVOLOG] 3 ML PEN SC ×4 (08:20→21:00)
[2018-06-24] MEDS: BETAMETHASONE/CLOTRIMAZOLE 15 GM CR TOP ×2 (08:23→21:18)
[2018-06-24 08:50] LABS: MAGNESIUM 1.8 mg/dl (1.7-2.5)
[2018-06-24 08:51] LABS: ANION GAP 7 (5-13); BLOOD UREA NITROGEN 58 mg/dl (7-20); CALCIUM 9.1 mg/dl (8.4-10.2); CARBON DIOXIDE 28 mmol/L (21-31); CHLORIDE 103 mmol/L (97-110); CREATININE 1.78 mg/dl (0.44-1.00); GLUCOSE 159 mg/dl (70-220); POTASSIUM 4.1 mmol/L (3.5-5.1); SODIUM 138 mmol/L (135-144)
[2018-06-24] MEDS: ALBUMIN HUMAN 25% 50 ML IV ×2 (10:54→17:48)
[2018-06-24] MEDS: FUROSEMIDE 40 MG INJ IV ×2 (11:40→19:17)
[2018-06-24] MEDS: ATORVASTATIN 10 MG TAB PO (21:16)
[2018-06-24] MEDS: MIRTAZAPINE 15 MG TAB PO (21:16)
[2018-06-24] MEDS: CYCLOBENZAPRINE 10 MG TAB PO (21:17)
[2018-06-24] MEDS: MONTELUKAST 10 MG TAB PO (21:17)
[2018-06-24] MEDS: DOXAZOSIN 4 MG TAB PO (21:17)
[2018-06-24] MEDS: INSULIN DETEMIR [LEVEMIR] (100 UNITS/ML) SYG SC (21:23)
[2018-06-24] MEDS: ZOLPIDEM 5 MG TAB PO (21:35)
[2018-06-25] MEDS: ACCU-CHEK XX (03:00)
[2018-06-25] MEDS: PANTOPRAZOLE (EC) 40 MG TAB PO (06:18)
[2018-06-25] MEDS: FUROSEMIDE 40 MG INJ IV (06:18)
[2018-06-25] MEDS: SPIRONOLACTONE 25 MG TAB PO (06:19)
[2018-06-25 06:52] LABS: ADD MAN DIFF? NO
[2018-06-25 07:17] LABS: ANION GAP 11 (5-13); BLOOD UREA NITROGEN 75 mg/dl (7-20); CARBON DIOXIDE 25 mmol/L (21-31); CHLORIDE 102 mmol/L (97-110); CREATININE 1.78 mg/dl (0.44-1.00); GLUCOSE 124 mg/dl (70-220); POTASSIUM 4.5 mmol/L (3.5-5.1); SODIUM 138 mmol/L (135-144)
[2018-06-25 07:49] LABS: BASOPHILS % 0.3 % (0.0-2.0); EOSINOPHILS # 0.1 10^3/ul (0.0-0.5); EOSINOPHILS % 0.7 % (0.0-7.0); HEMATOCRIT 28.2 % (37.0-47.0); HEMOGLOBIN 8.8 g/dl (12.0-16.0); LYMPHOCYTES # 1.2 10^3/ul (0.8-2.9); MEAN CORPUSCULAR HEMOGLOBIN 26.5 pg (29.0-33.0); MEAN CORPUSCULAR HGB CONC 31.2 g/dl (32.0-37.0); MEAN CORPUSCULAR VOLUME 84.9 fl (82.0-101.0); MEAN PLATELET VOLUME 10.7 fl (7.4-10.4); MONOCYTE # 0.5 10^3/ul (0.3-0.9); MONOCYTES % 6.8 % (0.0-11.0); NEUTROPHIL # 5.1 10^3/ul (1.6-7.5); NEUTROPHILS % 73.8 % (39.0-77.0); PLATELET COUNT 148 10^3/UL (140-415); RED BLOOD COUNT 3.32 10^6/ul (4.20-5.40); RED CELL DISTRIBUTION WIDTH 15.2 % (11.5-14.5)
[2018-06-25 07:49] LABS: WHITE BLOOD COUNT 6.9 10^3/ul (4.8-10.8)
[2018-06-25] MEDS: INSULIN ASPART [NOVOLOG] 3 ML PEN SC ×2 (07:55→13:16)
[2018-06-25] MEDS: ARIPIPRAZOLE 5 MG TAB PO (09:12)
[2018-06-25] MEDS: METOLAZONE 5 MG TAB PO (09:13)
[2018-06-25] MEDS: CITALOPRAM 20 MG TAB PO (09:13)
[2018-06-25] MEDS: ASPIRIN 81 MG TAB PO (09:13)
[2018-06-25] MEDS: ALLOPURINOL 300 MG TAB PO (09:13)
[2018-06-25] MEDS: METOPROLOL (XL) 100 MG TAB PO (09:13)
[2018-06-25] MEDS: AMLODIPINE 10 MG TAB PO (09:13)
[2018-06-25] MEDS: FERROUS SULFATE (EC) 325 MG TAB PO (09:13)
[2018-06-25] MEDS: GUAIFENESIN LA 600 MG TABSR PO (09:13)
[2018-06-25] MEDS: LEVOFLOXACIN 500 MG TAB PO (09:14)
[2018-06-25] MEDS: FLUTICASONE/VILANTEROL 200-25 INH DEVICE INH (09:14)
[2018-06-25] MEDS: BETAMETHASONE/CLOTRIMAZOLE 15 GM CR TOP (09:16)
== END 2018-06-25 12:47 | disposition home health service (06) | DRG 291 ==
LOC: TEL 22:59 → E/R 20:01 → TEL 06-22 01:16
DX: I13.0 Hypertensive heart and chronic kidney disease with heart failure and stage 1 through stage 4 chronic kidney disease, or unspecified chronic kidney disease (principal); I50.33 Acute on chronic diastolic (congestive) heart failure; J45.901 Unspecified asthma with (acute) exacerbation; E11.22 Type 2 diabetes mellitus with diabetic chronic kidney disease; R07.9 Chest pain, unspecified; E78.5 Hyperlipidemia, unspecified; F32.9 Major depressive disorder, single episode, unspecified; F41.9 Anxiety disorder, unspecified; N18.9 Chronic kidney disease, unspecified; I87.2 Venous insufficiency (chronic) (peripheral); Z79.4 Long term (current) use of insulin; Z79.82 Long term (current) use of aspirin; Z95.0 Presence of cardiac pacemaker
CPT/HCPCS: 36415; 71045; 80048; 82550; 82553; 82962; 83735; 83880; 84484; 85025; 87081; 93005; 93306; 93970; 94644; 94664; 99285-25; G0378